=== PATIENT | female | born 1965 | race African-American/Black ===

== ENCOUNTER 2017-06-18 22:59 | Emergency (ER) | payer BC ==
[2017-06-18 23:05] VITALS: BMI 24.4
--- NOTE | 2017-06-18 23:20 | PDOC ---
History of Present Illness - General History Source: Patient - History of Present Illness Initial Comments: 06/19/17 01:47 Patient is a 51 y.o. female who presents with parapsinal thoracic back pain after sleeping on the couch overnight. Patient denies any trauma or limited ROM. Patient further denies any systemic symptoms of infection including fever , chills. <Belem Winters - Last Filed: 06/19/17 01:55> <Shameka Ayala - Last Filed: 06/19/17 06:05> - General Chief Complaint: Back Pain Stated Complaint: BACK PAIN Time Seen by Provider: 06/18/17 23:19 Past History - Past Medical History Anemia: Yes (MICROCYTIC) Asthma: Yes (MICROCYSTIC) Cancer: No Cardiac Disorders: No CVA: No COPD: No CHF: No Dementia: No Diabetes: Yes (BORDERLINE-NO MED) GI Disorders: Yes (NSAID GASTRITIS, MULTIPLE COLON ADENOMAS, LACTOSE INTOLERANCE ) Disorders: Yes (ENDOMETRIOSIS) HTN: Yes Hypercholesterolemia: Yes Liver Disease: No Seizures: No Thyroid Disease: No - Surgical History Abdominal Surgery: No Appendectomy: No Cardiac Surgery: No Cholecystectomy: No Lung Surgery: No Neurologic Surgery: No Orthopedic Surgery: No - Suicide/Smoking/Psychosocial Hx Smoking History: Current every day smoker Have you smoked in the past 12 months: Yes Number of Cigarettes Smoked Daily: 20 Information on smoking cessation initiated: No 'Breaking Loose' booklet given: 02/22/14 Hx Alcohol Use: No Drug/Substance Use Hx: No Substance Use Type: None Hx Substance Use Treatment: No <Belem Winters - Last Filed: 06/19/17 01:55> <Shaemka Ayala - Last Filed: 06/19/17 06:05> - Past Medical History Allergies/Adverse Reactions: Allergies Allergy/AdvReac Type Severity Reaction Status Date / Time cat dander Allergy Severe Difficulty Verified 06/18/17 23:37 Breathing dog dander Allergy Severe Difficulty Verified 06/18/17 23:37 Breathing CAT AND DOGS Allergy Severe Difficulty Uncoded 05/13/16 14:16 Breathing LACTOSE INTOLERANCE AdvReac Intermediate Uncoded 05/13/16 14:17 Home Medications: Ambulatory Orders Ibuprofen [Motrin -] 800 mg PO ASDIR PRN 12/26/15 Mag Carb/Al Hydrox/Alginic AC [Gaviscon Liquid] 30 ml PO Q4H #0 oral.susp Zolpidem Tartrate [Ambien] 5 mg PO HS 12/26/15 Amlodipine Besylate 5 mg PO DAILY 05/13/16 Cholecalciferol (Vitamin D3) [Vitamin D3] 1,000 unit PO DAILY 05/13/16 Multivitamin with Minerals [Icaps Plus] 1 each PO DAILY 05/13/16 Mv W-Ca/Iron/FA/Lutein/Hrb#179 [Eloy Multi For Women Tab] 1 each PO DAILY Nebivolol HCl [Bystolic] 15 mg PO DAILY 05/13/16 Ranitidine [Zantac -] 150 mg PO BID PRN 05/13/16 Oxycodone HCl/Acetaminophen [Percocet 10-325 mg Tablet] 1 each PO TID PRN #15 tablet MDD 3 06/19/17 Review of Systems - Review of Systems Constitutional: No: Chills, Fever Cardiac (ROS): No: Chest Pain ABD/GI: No: Constipated, Diarrhea, Nausea, Vomiting Musculoskeletal: Yes: Back Pain All Other Systems: Reviewed and Negative <Belem Winters - Last Filed: 06/19/17 01:55> *Physical Exam - Vital Signs Last Vital Signs Temp Pulse Resp BP Pulse Ox 98.3 F 67 18 125/68 98 06/18/17 23:02 06/18/17 23:02 06/18/17 23:02 06/18/17 23:02 06/18/17 23:02 - Physical Exam General Appearance: Yes: Nourished, Appropriately Dressed Respiratory/Chest: positive: Lungs Clear Cardiovascular: positive: S1, S2 Musculoskeletal: positive: Normal Inspection. 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, Fully Oriented, Alert, Motor Strength 5/5 <Belem Winters - Last Filed: 06/19/17 01:55> - Vital Signs Last Vital Signs Temp Pulse Resp BP Pulse Ox 97.6 F 56 L 17 135/59 99 06/19/17 01:16 06/19/17 01:16 06/19/17 01:16 06/19/17 01:16 06/19/17 01:16 <Shameka Ayala - Last Filed: 06/19/17 06:05> ED Treatment Course - Medications Given in the ED: ED Medications Discontinued Medications Generic Name Dose Route Start Last Admin Trade Name Bebeto PRN Reason Stop Dose Admin Ketorolac Tromethamine 30 mg 06/18/17 23:32 06/19/17 00:09 Toradol Injection - IM 06/18/17 23:33 30 mg ONCE ONE Administration Methocarbamol 500 mg 06/18/17 23:32 06/19/17 00:08 Robaxin - PO 06/18/17 23:33 500 mg ONCE ONE Administration Oxycodone/Acetaminophen 1 combo 06/18/17 23:38 06/19/17 00:09 Percocet 5/325 - PO 06/18/17 23:39 1 combo ONCE ONE Administration <Shameka Ayala - Last Filed: 06/19/17 06:05> Medical Decision Making - Medical Decision Making 06/19/17 01:49 Patient is a 51 y.o. female who presents with back pain. On PE, patient has no C-spine or vertebral tenderness and displays full range of motion and normal strength. Patient is neurologically intact and displays normal gait. 06/19/17 01:54 Patient's pain resolved with Toradol and Robaxin. Patient discharged with outpatient prescription for Percocet and instruction to follow up with PCP. <Belem Winters - Last Filed: 06/19/17 01:55> - Medical Decision Making 06/19/17 06:04 Pt seen and discussed with resident. I agree with her exam. Pt comes with new onset muscle pain. Pt is feeling better with meds in the ER. Pt will go home with analgesia and muscle relaxants. Pt has a diagnosis of muscle spasm. <Shameka Ayala - Last Filed: 06/19/17 06:05> *DC/Admit/Observation/Transfer <Belem Winters - Last Filed: 06/19/17 01:55> <Shameka Ayala - Last Filed: 06/19/17 06:05> Diagnosis at time of Disposition: Back pain - Discharge Dispostion Disposition: HOME Condition at time of disposition: Good - Prescriptions Prescriptions: Oxycodone HCl/Acetaminophen [Percocet 10-325 mg Tablet] 1 each PO TID PRN #15 tablet MDD 3 PRN Reason: Back Pain - Referrals Referrals: Fbaiano Arambula MD [Primary Care Provider] - - Patient Instructions Printed Discharge Instructions: DI for Thoracic Back Pain Additional Instructions: Please follow up with your Primary Care Provider in the next 5 days. Please return to the Emergency Department for any worsening or concerning symptoms.
[2017-06-18] MEDS ORDERED: KETOROLAC TROMETHAMINE 30 MG/1 ML VIAL IM ONE (23:32)
[2017-06-18] MEDS ORDERED: METHOCARBAMOL 500 MG TABLET PO ONE (23:32)
[2017-06-19] MEDS ORDERED: METHOCARBAMOL 500 MG TABLET ONE (00:01)
[2017-06-19] MEDS ORDERED: KETOROLAC TROMETHAMINE 30 MG/1 ML VIAL ONE (00:01)
[2017-06-19 01:17] VITALS: BP 135/59; PULSE 56; TEMP 97.6
== END 2017-06-19 01:17 | disposition home or self-care (01) ==
LOC: JER 22:59
PROC: 3E0233Z Introduction of Anti-inflammatory into Muscle, Percutaneous Approach (ICD-10-PCS; principal; 2017-06-18)
DX: M54.89 Other dorsalgia (principal); X50.1XXA Overexertion from prolonged static or awkward postures, initial encounter; Y93.89 Activity, other specified; Y92.038 Other place in apartment as the place of occurrence of the external cause; I10 Essential (primary) hypertension; E11.9 Type 2 diabetes mellitus without complications; E78.00 Pure hypercholesterolemia, unspecified; D50.9 Iron deficiency anemia, unspecified; F17.210 Nicotine dependence, cigarettes, uncomplicated; Z87.19 Personal history of other diseases of the digestive system
CPT/HCPCS: 99281-25

== ENCOUNTER 2018-03-27 07:08 | Day surgery (SDC) | payer BC ==
[2018-03-27 07:46] VITALS: BMI 24.7
[2018-03-27] MEDS ORDERED: SUCCINYLCHOLINE CHLORIDE 200 MG/10 ML VIAL ONE (07:55)
[2018-03-27] MEDS ORDERED: PROPOFOL 20 ML ONE ×5 (07:55)
[2018-03-27] MEDS ORDERED: LIDOCAINE HCL/PF 2% SDV 5ML VIAL ONE (07:56)
[2018-03-27 09:04] VITALS: TEMP 98.5
[2018-03-27 09:26] VITALS: PULSE 58
[2018-03-27 13:00] VITALS: BP 147/74
--- NOTE | 2018-03-28 16:33 | PATH ---
Surgical Pathology Report Patient Name: PILAR DUNCAN [facility]. Rec. #: [id number] /Age/Gender: 1965 (Age: 52) / F Account: [id number] Location: U-ENDOSCOPY Taken: 03/27/2018 Received: 03/27/2018 Reported: 03/28/2018 Physicians: Svetlana Marcial M.D. Specimen(s) Received A: BX ANTRAL POLYP B: BX ANTRUM C: BX GASTRIC BODY D: BX GE JUNCTION E: RECTAL POLYP F: POLYP SIGMOID G: BX HEPATIC FLEXURE POLYP H: BX TRANSVERSE COLON POLYP I: BX DESCENDING COLON POLYP Clinical History Dyspepsia, altered bowel habits, adenoma surveillance Postoperative diagnosis: Gastritis, hiatal hernia, antral polyp, colon polyps, diverticulosis Final Diagnosis A. STOMACH, ANTRAL POLYP, POLYPECTOMY: POLYPOID GASTRIC ANTRAL MUCOSA WITH MINIMAL CHRONIC INFLAMMATION AND FOCAL INTESTINAL METAPLASIA. IMMUNOHISTOCHEMICAL STAIN FOR H. PYLORI IS NEGATIVE. B. STOMACH, ANTRUM, BIOPSY: GASTRIC ANTRAL MUCOSA WITH MILD CHRONIC GASTRITIS. IMMUNOHISTOCHEMICAL STAIN FOR H. PYLORI IS NEGATIVE. C. STOMACH, BODY, BIOPSY: GASTRIC BODY MUCOSA WITH MILD CHRONIC GASTRITIS. IMMUNOHISTOCHEMICAL STAIN FOR H. PYLORI IS NEGATIVE. D. GE JUNCTION, BIOPSY: SQUAMOUS MUCOSA WITH VASCULAR CONGESTION AND MODERATE BASAL CELL HYPERPLASIA CONSISTENT WITH REFLUX TYPE CHANGES. NO COLUMNAR MUCOSA, INTESTINAL METAPLASIA OR DYSPLASIA IDENTIFIED. E. RECTUM, POLYP, POLYPECTOMY: HYPERPLASTIC POLYP. F. SIGMOID COLON, POLYP, POLYPECTOMY: HYPERPLASTIC POLYP. G. COLON, HEPATIC FLEXURE, POLYP, POLYPECTOMY: POLYPOID COLONIC MUCOSA WITH SMALL LYMPHOID AGGREGATE. POLYPOID COLONIC MUCOSA WITHOUT SIGNIFICANT PATHOLOGIC FINDINGS. H. TRANSVERSE COLON, POLYPS, POLYPECTOMY: POLYPOID COLONIC MUCOSA WITH PROMINENT LYMPHOID AGGREGATE. I. DESCENDING COLON, POLYPS, POLYPECTOMY: POLYPOID COLONIC MUCOSA WITH PROMINENT LYMPHOID AGGREGATE. Electronically Signed Sally Frank M.D. Gross Description A. Received in formalin, labeled "biopsy antral polyp" is a hermosillo, irregular portion of soft tissue measuring 0.4 cm. in greatest dimension. The specimen is submitted in toto in one cassette. B. Received in formalin, labeled "biopsy antrum" are 3 hermosillo, irregular portions of soft tissue ranging from 0.2-0.4 cm. in greatest dimension. The specimens are submitted in toto in one cassette. C. Received in formalin, labeled "biopsy gastric body" are 4 hermosillo, irregular portions of soft tissue ranging from 0.3-0.5 cm. in greatest dimension. The specimens are submitted in toto in one cassette. D. Received in formalin, labeled "biopsy GE junction" are 2 hermosillo, irregular portions of soft tissue measuring 0.3 and 0.5 cm. in greatest dimension. The specimens are submitted in toto in one cassette. E. Received in formalin, labeled "biopsy rectal polyp" are 2 hermosillo, irregular portions of soft tissue measuring 0.3 and 0.4 cm. in greatest dimension. The specimens are submitted in toto in one cassette. F. Received in formalin, labeled "biopsy sigmoid polyp" are 4 hermosillo, irregular portions of soft tissue ranging from 0.2-0.3 cm. in greatest dimension. The specimens are submitted in toto in one cassette. G. Received in formalin, labeled "biopsy hepatic flexure polyps" are 4 hermosillo, irregular portions of soft tissue ranging from 0.1-0.3 cm. in greatest dimension. The specimens are submitted in toto in one cassette. H. Received in formalin, labeled "biopsy polyps transverse colon" are 4 hermosillo, irregular portions of soft tissue ranging from 0.1-0.4 cm. in greatest dimension. The specimens are submitted in toto in one cassette. I. Received in formalin, labeled "biopsy descending colon polyps" are 4 hermosillo, irregular portions of soft tissue ranging from 0.1-0.4 cm. in greatest dimension. The specimens are submitted in toto in one cassette. 03/27/2018 saudi03/27/2018
== END 2018-03-27 10:25 | disposition home or self-care (01) ==
LOC: JASU-ENDO 07:08
PROVIDERS: ATTEND Internal Medicine Gastroenterology
PROC: 0DBL8ZX Excision of Transverse Colon, Via Natural or Artificial Opening Endoscopic, Diagnostic (ICD-10-PCS; 2018-03-27)
PROC: 0DBN8ZX Excision of Sigmoid Colon, Via Natural or Artificial Opening Endoscopic, Diagnostic (ICD-10-PCS; 2018-03-27)
PROC: 0DBP8ZX Excision of Rectum, Via Natural or Artificial Opening Endoscopic, Diagnostic (ICD-10-PCS; 2018-03-27)
PROC: 0DB48ZX Excision of Esophagogastric Junction, Via Natural or Artificial Opening Endoscopic, Diagnostic (ICD-10-PCS; 2018-03-27)
PROC: 0DB68ZX Excision of Stomach, Via Natural or Artificial Opening Endoscopic, Diagnostic (ICD-10-PCS; 2018-03-27)
PROC: 0DB38ZX Excision of Lower Esophagus, Via Natural or Artificial Opening Endoscopic, Diagnostic (ICD-10-PCS; 2018-03-27)
PROC: 0DBM8ZX Excision of Descending Colon, Via Natural or Artificial Opening Endoscopic, Diagnostic (ICD-10-PCS; principal; 2018-03-27 08:00)
DX: Z86.010 Personal history of colon polyps (principal); D12.6 Benign neoplasm of colon, unspecified; D12.4 Benign neoplasm of descending colon; K63.5 Polyp of colon; K57.30 Diverticulosis of large intestine without perforation or abscess without bleeding; K64.8 Other hemorrhoids; K31.7 Polyp of stomach and duodenum; K44.9 Diaphragmatic hernia without obstruction or gangrene; K29.50 Unspecified chronic gastritis without bleeding; K21.9 Gastro-esophageal reflux disease without esophagitis
CPT/HCPCS: 88305-TC; 88342-TC

== ENCOUNTER 2018-12-11 12:15 | Emergency (ER) | payer BC ==
[2018-12-11 12:26] VITALS: BP 121/70; PULSE 96; TEMP 98; BMI 26.6
--- NOTE | 2018-12-11 13:05 | PDOC ---
History of Present Illness - General Chief Complaint: Pain Stated Complaint: ABDOMINAL PAIN Time Seen by Provider: 12/11/18 13:04 History Source: Patient Exam Limitations: No Limitations - History of Present Illness Initial Comments: Pt is a 53 yo F, with PMH of borderline DM (no medication), BP (controlled on amlodipine), GERD, diverticulitis, and uterine/GI polyps, who is presenting with complaints of isabel-umbilical discomfort x2 days. Pt states the discomfort feels like "a pressure against her waist-band," has been non-migratory since it started, and is constant. The pain does not radiate to her groin or back. There are no exacerbating or alleviating factors. The pt has been tolerating PO food and fluid intake, but endorses some decreased appetite for food. Pt has had regular BMs, with no nausea or vomiting. Pt also endorses recent "hot flashes" and crampy abdominal pain over the past few months, with negative transvaginal US about 3 weeks ago. Last EGD done March 2018 showed extensive polyps, diverticulitis, and GERD, with no ulcers. PT has also had uterine polyps removed with D/C about 2 years ago. Pt denies any fevers/chills, headache, vision changes, syncope, chest pain, palpitations, SOB, nausea/vomiting, vaginal discharge or bleeding, urinary symptoms, diarrhea/constipation, or leg swelling. Social: Pt smokes about 1/2 pack per day. Denies any alcohol or drug use. Pt denies any recent travel or sick contacts. Surgical: uterine D&I and polypectomy Family: no relevant history. 12/11/18 14:38 Past History - Travel Traveled outside of the country in the last 30 days: No Close contact w/someone who was outside of country & ill: No - Past Medical History Allergies/Adverse Reactions: Allergies Allergy/AdvReac Type Severity Reaction Status Date / Time cat dander Allergy Severe Difficulty Verified 06/18/17 23:37 Breathing dog dander Allergy Severe Difficulty Verified 06/18/17 23:37 Breathing CAT AND DOGS Allergy Severe Difficulty Uncoded 05/13/16 14:16 Breathing LACTOSE INTOLERANCE AdvReac Intermediate Uncoded 05/13/16 14:17 Home Medications: Ambulatory Orders Zolpidem Tartrate [Ambien] 5 mg PO HS 12/26/15 Amlodipine Besylate 10 mg PO DAILY 05/13/16 Nebivolol HCl [Bystolic] 5 mg PO DAILY 05/13/16 Melatonin 1 mg PO HS 03/27/18 Pitavastatin Calcium [Livalo] 2 mg PO HS 03/27/18 Anemia: Yes (MICROCYTIC) Asthma: Yes Cancer: No Cardiac Disorders: No CVA: No COPD: No CHF: No Dementia: No Diabetes: Yes (BORDERLINE-NO MED) GI Disorders: Yes (NSAID GASTRITIS, MULTIPLE COLON ADENOMAS, LACTOSE INTOLERANCE ,diverticulosi) Disorders: Yes (ENDOMETRIOSIS) HTN: Yes Hypercholesterolemia: Yes Liver Disease: No Seizures: No Thyroid Disease: No Other medical history: polyps and diverticulosis. - Surgical History Abdominal Surgery: No Appendectomy: No Cardiac Surgery: No Cholecystectomy: No Lung Surgery: No Neurologic Surgery: No Orthopedic Surgery: No - Suicide/Smoking/Psychosocial Hx Smoking History: Never smoked Have you smoked in the past 12 months: Yes Number of Cigarettes Smoked Daily: 10 Information on smoking cessation initiated: No 'Breaking Loose' booklet given: 02/22/14 Hx Alcohol Use: No Drug/Substance Use Hx: No Substance Use Type: None Hx Substance Use Treatment: No Review of Systems - Review of Systems Able to Perform ROS?: Yes Is the patient limited [place] proficient: No Constitutional: Yes: Weight Stable. No: Chills, Diaphoresis, Fever, Loss of Appetite, Malaise, Weakness HEENTM: No: Blurred Vision, Double Vision, Nose Congestion, Throat Pain, Throat Swelling, Difficulty Swallowing, Mouth Swelling Respiratory: No: Cough, Orthopnea, Shortness of Breath Cardiac (ROS): No: Chest Pain, Edema, Irregular Heart Rate, Lightheadedness, Palpitations, Syncope, Chest Tightness ABD/GI: Yes: See HPI, Poor Appetite, Poor Fluid Intake, Abdominal cramping. No : Abdominal Distended, Abd. Pain w/ defecation, Blood Streaked Bowels, Constipated, Diarrhea, Difficulty Swallowing, Nausea, Rectal Bleeding, Vomiting , Indigestion : No: Burning, Dysuria, Discharge, Frequency, Flank Pain, Hematuria, Incontinence, Pain, Urgency Musculoskeletal: No: Back Pain, Joint Pain, Muscle Pain, Muscle Weakness Integumentary: No: Rash Neurological: No: Headache, Numbness, Weakness, Unsteady Gait, Dizziness Psychiatric: Yes: Change in Appetite. No: Stressors, Sleep Pattern Change Endocrine: Yes: Flushing (increased hot flashes). No: Intolerance to Cold, Intolerance to Heat, Increased Urine, Change in Weight Hematologic/Lymphatic: No: Anemia, Blood Clots, Easy Bleeding, Easy Bruising All Other Systems: Reviewed and Negative *Physical Exam - Vital Signs Last Vital Signs Temp Pulse Resp BP Pulse Ox 98 F 96 H 16 121/70 98 12/11/18 12:22 12/11/18 12:22 12/11/18 12:22 12/11/18 12:22 12/11/18 12:22 - Physical Exam Comments: BP 121/70, HR 96, pt afebrile. Pt in NAD, normal body habitus. PE showed pt alert and oriented. Pt ambulatory and well-appearing. 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 Head normocephalic, atraumatic. Eyes PERRLA, EOMI. Oropharynx without erythema or exudates, no LAD b/l. No nasal congestion, hearing intact. Clear heart sounds, S1/S2, no JVD, b/l pedal edema, or heart murmur. Clear lung sounds, no respiratory distress, wheezes, crackles, or accessory muscle use. Mild periumbilical tenderness to palpation. No CVA tenderness to palpation, no rebound, no guarding. Abdomen soft, non-distended, and with normoactive bowel sounds. Skin without jaundice or rash. 12/11/18 14:00 ED Treatment Course - LABORATORY CBC & Chemistry Diagram: 12/11/18 13:50 12/11/18 13:50 Medical Decision Making - Medical Decision Making Pt was seen at bedside, also will be seen by attending Dr. Lovell. Pt presenting with complaints of isabel-umbilical discomfort x2 days. Pt states the discomfort feels like "a pressure against her waist-band," has been non- migratory since it started, and is constant. The pain does not radiate to her groin or back. There are no exacerbating or alleviating factors. The pt has been tolerating PO food and fluid intake, but endorses some decreased appetite for food. Pt has had regular BMs, with no nausea or vomiting. Pt also endorses recent "hot flashes" and crampy abdominal pain over the past few months, with negative transvaginal US about 3 weeks ago. Last EGD done March 2018 showed extensive polyps, diverticulitis, and GERD, with no ulcers. PT has also had uterine polyps removed with D/C about 2 years ago. Pt denies any fevers/chills, headache, vision changes, syncope, chest pain, palpitations, SOB, nausea/ vomiting, vaginal discharge or bleeding, urinary symptoms, diarrhea/constipation , or leg swelling. Considering UTI vs diverticulitis vs appendicitis vs recurrent polyps vs mesenteric pathology. Pain is constant and pt has minimal risk factors for mesenteric ischemia, given well-controlled BP. Ordered work-up including CBC, CMP, UA, urine culture, lipase, CT abd/pelvis with IV contrast. Provided 650 mg PO tylenol and 1 L IV NS for improvement of pain and tachycardia , likely 2/2 to decreased intake or pain. Will continue to reassess pt and monitor for symptomatic improvement. 12/11/18 13:57 12/11/18 14:29 CBC, CMP, lipase WNL Pt taken for CT scan. Pt refused PO tylenol, saying "I don't have that much pain," per nursing staff. 12/11/18 15:38 Impression: Diverticulosis coli in the distal descending and proximal sigmoid colon with acute diverticulitis at the junction of the distal descending and proximal sigmoid colon without evidence of extravasation of air or abscess formation. Large right renal simple cyst measuring 5 cm. Left adrenal nodule measuring 11 mm likely representing an adrenal adenoma. Slightly hyperdense right adrenal nodule measuring 2.5 x 1.8 cm for which correlation with MRI is needed Spoke with Dr. Arambula who is also agreeable to outpatient antibiotics ( flagyl and bactrim DS), with PCP and GI follow-up. Strict return precautions provided with pt understanding. 12/11/18 18:47 *DC/Admit/Observation/Transfer Diagnosis at time of Disposition: Periumbilical pain - Discharge Dispostion Disposition: HOME Condition at time of disposition: Good Decision to Admit order: No - Referrals Referrals: Fabiano Arambula MD [Primary Care Provider] - Svetlana Marcial MD [Staff Physician] - - Patient Instructions Printed Discharge Instructions: DI for Diverticulitis Additional Instructions: You were seen in the ER today for abdominal pain. The results of your labs and imaging today showed diverticulitis. Please follow-up with your primary care doctor and GI within 1-2 days to discuss your visit and make sure your symptoms have improved. Please return to the ER if you have any worsening pain, development of fevers or chills, loss of consciousness, inability to tolerate food or fluids, or any other concerns. - Post Discharge Activity
[2018-12-11] MEDS ORDERED: SODIUM CHLORIDE 1,000 ML IV STA (13:49)
[2018-12-11] MEDS ORDERED: ACETAMINOPHEN 325 MG TABLET (FP) PO ONE (13:49)
[2018-12-11 14:06] LABS: URINE APPEARANCE CLEAR; URINE BILIRUBIN NEGATIVE (NEGATIVE); URINE COLOR YELLOW; URINE GLUCOSE (UA) NEGATIVE (NEGATIVE); URINE KETONE NEGATIVE (NEGATIVE); URINE LEUK ESTERASE NEGATIVE (NEGATIVE); URINE NITRITE NEGATIVE (NEGATIVE); URINE PROTEIN NEGATIVE (NEGATIVE)
[2018-12-11] MEDS ORDERED: ACETAMINOPHEN 325 MG TABLET (FP) ONE (14:35)
[2018-12-11 14:41] LABS: BASO % 0.8 % (0-2.0); EOS % 1.3 % (0-4.5); HEMATOCRIT 43.3 % (32.4-45.2); HEMOGLOBIN 14.3 GM/dL (10.7-15.3); LYMPH % 38.2 % (8-40); MCH 28.6 pg (25.7-33.7); MEAN CELL VOLUME 86.4 fl (80-96); MEAN PLT VOLUME 8.1 fl (7.5-11.1); MONO % 7.4 % (3.8-10.2); NEUT % 52.3 % (42.8-82.8); PLATELET COUNT 303 K/MM3 (134-434); RBC 5.01 M/mm3 (3.60-5.2); RDW 13.8 % (11.6-15.6); WHITE BLOOD COUNT 8.2 K/mm3 (4.0-10.0)
[2018-12-11 15:12] LABS: ALBUMIN 4.1 g/dl (3.4-5.0); ALK PHOS 73 U/L (45-117); ANION GAP 7 MMOL/L (8-16); BILIRUBIN,TOTAL 0.5 mg/dL (0.2-1); BLOOD UREA NITROGEN 12 mg/dL (7-18); CALCIUM 9.1 mg/dL (8.5-10.1); CHLORIDE 108 mmol/L (98-107); CO2 25 mmol/L (21-32); CREATININE 0.8 mg/dL (0.55-1.3); GLUCOSE,RANDOM 94 mg/dL (74-106); LIPASE 183 U/L (73-393); POTASSIUM 4.3 mmol/L (3.5-5.1); SGOT/AST 21 U/L (15-37); SGPT/ALT 24 U/L (13-61); SODIUM 141 mmol/L (136-145); TOT PROT 7.6 g/dl (6.4-8.2)
--- NOTE | 2018-12-11 16:04 | PDOC ---
Attending Attestation - Resident Resident Name: Gretchen Simmons - ED Attending Attestation I have performed the following: I have examined & evaluated the patient, The case was reviewed & discussed with the resident, I agree w/resident's findings & plan, Exceptions are as noted - HPI HPI: 12/11/18 15:59 The patient is a 53 year old female, with a significant PMH of borderline DM, HTN, extensive GI hx - diverticitis, uterine polyp, who was sent into the emergency department by Dr. Arambula, for evaluation of periumbilical pain that began on Tuesday. She states that it is a constant discomfort and that it feels like her waistband is too tight. She notes decreased PO. Patient endorses "menopause symptoms" - hot flashes, crampy abdominal feeling for the past month. Patient denies vaginal symptoms. A prescription from Dr. Arambula recommends CTAP for RLQ pain, but pt denies RLQ pain. The patient denies chest pain, shortness of breath, headache and dizziness. Denies fever, chills, nausea, vomit, diarrhea and constipation. Denies dysuria, frequency, urgency and hematuria. Allergies: NKA Social history: None reported PCP: Dr. Arambula - Physicial Exam PE: 12/11/18 16:04 agree with resident exam - Medical Decision Making 12/11/18 16:06 53yo F presents to the ED for evaluation of isabel-umbilical pain and for CTAP from Dr. Arambula's office. Vitals wnl. Pt is well appearing, has mild ttp in periumbilical area. DDx includes appendicitis vs diverticulitis vs fibroids vs colitis vs pancreatitis. Plan -labs -UA -CTAP -symptom control -dispo 12/11/18 18:43 Labs/UA wnl CTAP with acute divertiulitis w/o abscess, perf Pt well appearing, non toxic, tolerating PO Plan to treat as an outpt Dr. Arambula has been paged to discuss 12/11/18 19:[address] Arambula by Dr. Simmons Agrees with outpt mgmt with abx CTAP also reveals adrenal nodule that requires correlation with MRI Informed pt of this finding and that it must be w/u as an outpt to make sure it is not cancerous Pt expresses understanding, will f/u with Dr. Arambula for MRI Pt well appearing, clinically stable for DC home.
== END 2018-12-11 19:01 | disposition home or self-care (01) ==
LOC: JER 12:15
PROC: 3E0337Z Introduction of Electrolytic and Water Balance Substance into Peripheral Vein, Percutaneous Approach (ICD-10-PCS; principal; 2018-12-11)
DX: K57.92 Diverticulitis of intestine, part unspecified, without perforation or abscess without bleeding (principal); I10 Essential (primary) hypertension; E11.9 Type 2 diabetes mellitus without complications; E78.00 Pure hypercholesterolemia, unspecified; Z86.2 Personal history of diseases of the blood and blood-forming organs and certain disorders involving the immune mechanism; Z87.19 Personal history of other diseases of the digestive system
CPT/HCPCS: 36415; 74177-TC; 80053; 81003; 83690; 85025; 87086; 99283-25; J7030

== ENCOUNTER → 2020-04-21 | Day surgery (SDC) | payer BC ==
[2020-04-17 13:43] VITALS: BMI 26.7
== END | disposition home or self-care (01) ==
LOC: JASU-ENDO 04:52
PROVIDERS: ATTEND Internal Medicine Gastroenterology
PROC: 0DJD8ZZ Inspection of Lower Intestinal Tract, Via Natural or Artificial Opening Endoscopic (ICD-10-PCS; principal; 2020-04-21)
DX: K58.9 Irritable bowel syndrome, unspecified (principal); Z53.8 Procedure and treatment not carried out for other reasons

== ENCOUNTER 2020-05-23 05:05 | Day surgery (SDC) | payer BC ==
[2020-05-22 13:51] VITALS: BMI 26.7
--- OUTSIDE RECORDS SUMMARY | 2020-05-23 05:09 | XMS ---
:1965 [facility] Care Team Providers Name Role Phone Fransico Valdez MD Unavailable Unavailable Fransico Valdez MD Unavailable Unavailable Fransico Valdez MD Unavailable Unavailable Fransico Valdez MD Unavailable Unavailable Fransico Valdez MD Unavailable Unavailable Fransico Valdez MD Unavailable Unavailable Fransico Valdez MD Unavailable Unavailable Fransico Valdez MD Unavailable Unavailable THONY LAURENT Unavailable Unavailable Re-disclosure Warning The records that you are about to access may contain information from federally- assisted alcohol or drug abuse programs. If such information is present, then the following federally mandated warning applies: This information has been disclosed to you from records protected by federal confidentiality rules (42 CFR part 2). The federal rules prohibit you from making any further disclosure of this information unless further disclosure is expressly permitted by the written consent of the person to whom it pertains or as otherwise permitted by 42 CFR part 2. A general authorization for the release of medical or other information is NOT sufficient for this purpose. The Federal rules restrict any use of the information to criminally investigate or prosecute any alcohol or drug abuse patient.The records that you are about to access may contain highly sensitive health information, the redisclosure of which is protected by Article 27-F of the [place] State Public Health law. If you continue you may haveaccess to information: Regarding HIV / AIDS; Provided by facilities licensed or operated by the [facility] Office of Mental Health; or Provided by the [facility] Office for People With Developmental Disabilities. If such information is present, then the following [facility] mandated warning applies: This information has been disclosed to you from confidential records which are protected by state law. State law prohibits you from making any further disclosure of this information without the specific written consent of the person to whom it pertains, or as otherwise permitted by law. Any unauthorized further disclosure in violation of state law may result in a fine or custodial sentence or both. A general authorization for the release of medical or other information is NOT sufficient authorization for further disclosure. Allergies and Adverse Reactions Type Description Substance Reaction Status Data Source(s ) aspirin aspirin aspirin Unknown Active eCW1 ([facility]) Propensity to aspirin Propensity to Unknown Active eCW1 ( int adverse reactions adverse reactions [facility]) No Information No Information No Information eC W1 ([facility]) Encounters Encounter Providers Location Date Indications Data Source(s ) Outpatient Attender: THONY Aviles 04/15/2020 [facility] MEHRANAdmitt 09:05:00 [facility] er: THONY ZEPEDA EDT MEHRANReferr er: THONY LAURENT Outpatient [address] 04/14/2020 eCW1 ([facility] 12:00:00 Mera Medic al AM EDT Practice PC) [facility] [address] 01/03/2020 eCW1 ([facility] 12:00:00 Mera M edical AM EDT Practice PC) [address] 01/03/2020 eCW1 (S aint Office [facility] 12:00:00 Mera Medi fabiola AM EDT Practice PC) [address] 09/03/2019 eCW1 (S aint Office [facility] 12:00:00 Mera Medi fabiola AM EST Practice PC) Outpatient Attender: Fransico Aviles 01/30/2019 [facility] 08:50:00 [place] MDAdmitter: AM EDT Fransico Valdez MDReferrer: Fransico Valdez MD [facility] 01/30/2019 [facility]EXTGEN ( int Center 08:50:00 Mera Medica l AM EDT - Center) 01/30/2019 08:50:00 AM EDT Attender: Fransico 01/30/2019 [facility] Valdez MD 12:00:00 Medical Center AM EDT Outpatient Attender: Fransico Aviles 01/23/2019 [facility] 07:50:00 Medical Center MDAdmitter: AM EDT Fransico Valdez MDReferrer: Fransico Valdez MD [facility] 01/23/2019 [facility] 07:50:00 Mera Medica l AM EDT - Center) 01/23/2019 07:50:00 AM EDT [address] 01/12/2019 eCW1 (S aint Office [facility] 12:00:00 Mera Medi fabiola AM EDT Practice PC) 09/19/2018 [facility] ([facility] 08:14:00 Mera Medica l AM EST - Center) 09/19/2018 08:14:00 AM EST [address] 09/19/2018 [facility] 12:00:00 [facility] AM EST Practice PC ) [address] 10/25/2017 eCW[facility] AM EST Practice PC ) [address] 09/27/2017 eCW1 [facility] AM EST Practice PC ) [address] 05/17/2017 eCW1 [facility] 12:00:00 [facility] AM EDT Practice PC ) [address] 10/21/2016 eCW1 (S aint Office [facility] 12:00:00 Mera Medi fabiola AM EST Practice PC) [address] 09/16/2016 eCW1 (S aint Office [facility] 12:00:00 Mera Medi fabiola AM EST Practice PC) [address] 03/12/2015 [facility] EDT Practice ) [address] 01/15/2015 eCW1 ([facility]00 [facility] Immunizations Vaccine Date Status Description Data Source(s) IIV3. This vaccine code is 09/19/2018 completed e CW1 ([facility] one of two which replace 10:06:00 AM [facility]) CVX 15, influenza, split virus. IIV3. This vaccine code is 09/27/2017 completed e CW1 ([facility] one of two which replace 11:24:00 AM [facility]) CVX 15, influenza, split virus. IIV3. This vaccine code is 01/15/2015 completed e CW1 ([facility] one of two which replace 10:10:00 AM [facility]) CVX 15, influenza, split virus. No Known Immunizations completed eCW1 ([facility]) No Known Immunizations completed eCW1 ([facility]) Medications Medication Brand Start Product Dose Route Administrative Pharmacy [facility] Indications Reaction Description Data Name Date Form Instructions Instructions Source(s) Biotin UNK suspend 1 capsule eCW1 10,000 ed ([facility]) Folic Acid Folic 1.0 active Folic Acid 1 eCW1 1 MG Oral Acid 1 {tabl MG ([facility] Tablet MG et} [facility]) Multivitami UNK active one tablet eCW1 n ([facility]) Ascorbic Vitami suspend 1 tablet eC W1 Acid 500 MG n C ed ([facility] Oral Tablet 500 MG [facility] Vitamin C Medical 500 MG [facility]) Amlodipine Amlodi active 1 tablet e CW1 5 MG Oral pine ([facility] Besyla [facility] Amlodipine te 5 Medical Besylate 5 MG Practice [facility]) Folic Acid Folic active 1 tablet eC W1 1 MG Oral Acid 1 ([facility]) Multivitami UNK active Multivitami n eCW1 n ([facility]) B Complex - B active B Complex - eCW1 Comple ([facility]) B Complex - B active as directed eCW1 Comple ([facility] PC) Amlodipine Amlodi 1.0 active Amlodipine eCW1 5 MG Oral pine {tabl Besylate 5 (Sa int Tablet Besyla et} MG [facility] Amlodipine te 5 Medical Besylate 5 MG Practice MG PC) Vitamin B Vitami active as directed eCW1 12 100 MCG n B 12 ([address]) Ranitidine UNK 1.0 active Ranitidine e CW1 HCl 150 MG {tabl HCl 150 MG (S aint et_at [facility] _bedt Medical colt} Practice PC) Ranitidine Raniti suspend 1 tablet at eCW1 150 MG Oral dine ed bedtime (Kandi t Tablet HCl [facility] Ranitidine 150 MG Medical HCl 150 MG Practice PC) linaclotide Linzes 1.0 active Linzess 1 45 eCW1 0.145 MG s 145 {caps MCG ([facility] Oral MCG ule} [facility] Capsule Medical [Linzes] Practice Linzes 145 PC) MCG Ascorbic Vitami 1.0 active Vitamin C eC W1 Acid 500 MG n C {tabl 500 MG (Kandi t Oral Tablet 500 MG et} [facility] Vitamin C Medical 500 MG Practice PC) nebivolol 5 Bystol 1.0 active Bystolic 5 eCW1 MG Oral ic 5 {tabl MG (Saint Tablet MG et} [facility] [[facility]] [facility] Bystolic 5 Practice MG PC) Vitamin B Vitami active Vitamin B 1 2 eCW1 12 100 MCG n B 12 100 MCG (Elijah nt 100 [facility]) Unknown complet eCW1 Medications ed ([facility]) nebivolol 5 Bystol active 1 tablet eCW1 MG Oral ic 5 (Saint Tablet MG [facility] [[facility]] Medical Bystolic 5 Practice MG PC) Biotin UNK 1.0 active Biotin eCW1 10,000 {caps 10,000 ([facility]) linaclotide Linzes active 1 capsule eCW1 0.145 MG s 145 ([facility] Oral MCG [facility] Capsule Medical [Linzes] Practice Linzes 145 PC) MCG Insurance Providers Payer Policy type Policy ID Covered Covered democrat's Policy Pl an name / Coverage democrat ID relationship to Nunez Inf ormation type nunez BC OUT OF [id number] S [id number] STATE O BLUE O [id number] 02 [id number] CROSS BC PPO [id number] HU [id number] BC PPO [id number] BLUE [id number] self [id number] CROSS BLUE [id number] self [id number] CROSS Problems, Conditions, and Diagnoses Code Display Name Description Problem Type Effective Data Dates Source(s) E27.9 [id number] Adrenal mass Problem 01/12/2019 eCW1 ([facility] 12:00:00 AM Mera EDT Medical Practice ) E27.9 [id number] Adrenal mass Problem 01/12/2019 eCW1 ([facility] 12:00:00 AM Mera EDT Medical Practice ) I51.7 [id number] LVH (left Problem 10/21/2016 eCW1 ([facility] ventricular 12:00:00 AM Mera hypertrophy) [facility] Medical Practice ) I51.7 [id number] LVH (left Problem 10/21/2016 eCW1 ([facility] ventricular 12:00:00 AM Mera hypertrophy) [facility] Medical Practice ) I10 [id number] Essential (primary) Problem 01/27/2016 eCW1 ([facility] hypertension 12:00:00 AM Mera EDT Medical Practice ) E78.5 [id number] Other and Problem 01/27/2016 eCW1 ([facility] unspecified 12:00:00 AM Mera hyperlipidemia EDT Medical Practice ) I10 [id number] Essential (primary) Problem 01/27/2016 eCW1 ([facility] hypertension 12:00:00 AM Mera EDT Medical Practice ) E78.5 [id number] Other and Problem 01/27/2016 eCW1 ([facility] unspecified 12:00:00 AM Mera hyperlipidemia EDT Medical Practice ) 401.1 Benign essential Hypertension, Problem 01/15/2015 eCW1 ([facility] hypertension essential benign 12:00:00 AM Anil hs EDT Medical Practice PC) 272.4 Hyperlipidemia Other and Problem 01/15/2015 eCW1 (Kandi t unspecified 12:00:00 AM Mera hyperlipidemia EDT Medical Practice ) 401.1 Benign essential Hypertension, Problem 01/15/2015 eCW1 ([facility] hypertension essential benign 12:00:00 AM Anil hs EDT Medical Practice ) 272.4 Hyperlipidemia Other and Problem 01/15/2015 eCW1 (Kandi t unspecified 12:00:00 AM [facility] EDT Medical Practice PC) R00.2 Palpitations PALPITATIONS Diagnosis 04/15/2020 [facility] 09:05:00 AM Medical EDT Center R07.89 Other chest pain OTHER CHEST PAIN Diagnosis 01/30/2019 int [facility] 08:50:00 AM Medical EDT Center Surgeries/Procedures Procedure Description Date Indications Data Source(s) No Known procedures No Known procedures e CW1 ([facility]) No Known procedures No Known procedures e CW1 ([facility]) Results ID Date Data Source [id number] 05/19/2020 03:36:00 PM EDT [facility] Name Value Range Interpretation Description Data Sup porting Code Source(s) Document(s ) SARS [facility] coronavirus 2 RNA This lab was ordered by [facility] and reported by [facility]. ID Date Data Source [id number] 04/16/2020 02:16:00 PM EDT [facility] Name Value Range Interpretation Description Data Sup porting Code Source(s) Document(s ) SARS [facility] coronavirus 2 RNA This lab was ordered by [facility] and reported by [facility]. ID Date Data Source [id number] 02/15/2020 12:00:00 AM EDT [facility] Name Value Range Interpretation Code Description Data Jolynn rce(s) Supporting Document(s ) COV2 [facility] This lab was ordered by MEHRAN and reported by [place]. ID Date Data Source [id number] 12/03/2019 12:00:00 AM EDT [facility] Name Value Range Interpretation Code Description Data Jolynn rce(s) Supporting Document(s ) RESULT [facility] This lab was ordered by [facility] [employer] and reported by [facility]. ID Date Data Source [id number] 11/19/2019 12:00:00 AM EDT [facility] Name Value Range Interpretation Code Description Data Jolynn rce(s) Supporting Document(s ) RESULT [facility] This lab was ordered by [facility] [employer] and reported by [facility] [employer]. ID Date Data Source [id number] 11/19/2019 12:00:00 AM EDT [facility] Name Value Range Interpretation Code Description Data Jolynn rce(s) Supporting Document(s ) SARS [facility] This lab was ordered by MEHRAN and reported by [facility]. Procedure Social History Code Duration Value Status Description Data Source(s ) Smoking 04/14/2020 Former Smoker completed Former Smoker eCW1 (Sa int 12:00:00 AM EDT [facility] PC) Smoking Unknown if ever completed Unknown if ever [facility] Former Smoker completed Former Smoker eCW1 ([facility]) Smoking Unknown if ever completed Unknown if ever eCW1 ([facility]) Smoking Unknown if ever completed Unknown if ever eCW1 ([facility]) Vital Signs ID Date Data Source UNK Name Value Range Interpretation Code Description Data Source(s) Diastolic blood mm[Hg] eCW1 (Eli[facility] nt pressure [facility]) Systolic blood 142 mm[Hg] 142 mm[Hg] eCW1 ([facility] t pressure [facility]) Heart rate /min eCW1 ([facility]) Body mass index 35.53 kg/m2 35.53 kg/m2 eCW1 (S aint (BMI) [Ratio] [facility]) Body weight 170 [lb_av] 170 [lb_av] eCW1 ([facility]) Body height 58 [in_i] 58 [in_i] eCW1 ([facility]) Diastolic blood 80 mm[Hg] 80 mm[Hg] eCW1 (Elijah nt pressure [facility]) Systolic blood 120 mm[Hg] 120 mm[Hg] eCW1 (Kandi t pressure [facility]) Heart rate 68 /min 68 /min eCW1 ([facility]) Body mass index 33.44 kg/m2 33.44 kg/m2 eCW1 (S aint (BMI) [Ratio] [facility]) Body weight 160 [lb_av] 160 [lb_av] eCW1 ([facility]) Body height 58 [in_us] 58 [in_us] eCW1 ([facility]) Patient Treatment Plan of Care Planned Activity Planned Date Details Description Data Source (s) Amlodipine 5 MG Oral Tablet eCW1 ([facility] Practic e ) nebivolol 5 MG Oral Tablet e CW1 ([facility]] Medical Practic e ) nebivolol 5 MG Oral Tablet e CW1 ([facility]] Medical Practic e ) Amlodipine 5 MG Oral Tablet eCW1 ([facility] Practic e )
[2020-05-23 10:59] VITALS: BP 115/68; PULSE 63; TEMP 97
--- NOTE | 2020-05-26 09:33 | PATH ---
Surgical Pathology Report Patient Name: PILAR DUNCAN [facility]. Rec. #: [id number] /Age/Gender: 1965 (Age: 54) / F Account: [id number] Location: U-ENDOSCOPY Taken: 05/23/2020 Received: 05/23/2020 Reported: 05/26/2020 Physicians: Svetlana Marcial M.D. Specimen(s) Received A: TRANSVERSE COLON POLYPS B: HEPATIC FLEXURE POLYPS C: RIGHT COLON POLYPS Clinical History Polyps surveillance Postop diagnosis: polyps, diverticulosis Final Diagnosis A. TRANSVERSE COLON, POLYPS, BIOPSY: COLONIC MUCOSA WITH FOCAL SUPERFICIAL HYPERPLASTIC FEATURES. POLYPOID FRAGMENTS OF COLONIC MUCOSA WITH PROMINENT LYMPHOID AGGREGATE(S). B. COLON, HEPATIC FLEXURE, POLYPS, BIOPSY: POLYPOID FRAGMENTS OF COLONIC MUCOSA WITH PROMINENT LYMPHOID AGGREGATE. C. COLON, RIGHT, POLYPS, BIOPSY: POLYPOID COLONIC MUCOSA WITH PROMINENT LYMPHOID AGGREGATE. Electronically Signed Sally Frank M.D. Gross Description A. Received in formalin, labeled "transverse colon polyps" are multiple hermosillo, irregular soft tissue measuring 0.5 x 0.5 x 0.1 cm aggregate. The specimen is submitted in toto in one cassette. B. Received in formalin, labeled "hepatic flexure polyps" are 3 hermosillo soft tissue measuring 0.2 to 0.3 cm. in greatest dimension. The specimen is submitted in toto in one cassette. C. Received in formalin, labeled "right colon polyps" is a hermosillo, irregular soft tissue measuring 1.0 cm. in greatest dimension. The specimen is submitted in toto in one cassette. KWSyl/05/23/2020 car/05/23/2020
== END 2020-05-23 10:50 | disposition home or self-care (01) ==
LOC: JASU-ENDO 05:05
PROVIDERS: ATTEND Internal Medicine Gastroenterology
PROC: 0DBL8ZX Excision of Transverse Colon, Via Natural or Artificial Opening Endoscopic, Diagnostic (ICD-10-PCS; 2020-05-23)
PROC: 0DBK8ZX Excision of Ascending Colon, Via Natural or Artificial Opening Endoscopic, Diagnostic (ICD-10-PCS; principal; 2020-05-23 09:00)
DX: Z12.11 Encounter for screening for malignant neoplasm of colon (principal); Z86.010 Personal history of colon polyps; D12.3 Benign neoplasm of transverse colon; K57.30 Diverticulosis of large intestine without perforation or abscess without bleeding; K64.8 Other hemorrhoids; K58.9 Irritable bowel syndrome, unspecified
CPT/HCPCS: 82962; 88305-TC

== ENCOUNTER 2023-08-04 21:37 | Emergency (ER) | payer BC ==
[2023-08-04 21:47] VITALS: BMI 26.7
[2023-08-04] MEDS ORDERED: AMOX TR/POT CLAV 875MG/125MG TABLETS (FP) PO ONE (21:54)
[2023-08-04 22:02] VITALS: BP 142/81; PULSE 58; RESP 16; TEMP 97.7
[2023-08-04] MEDS ORDERED: AMOX TR/POT CLAV 875MG/125MG TABLETS (FP) ONE (22:10)
== END 2023-08-04 22:24 | disposition home or self-care (01) ==
LOC: FER 21:37
DX: R10.9 Unspecified abdominal pain (principal); R14.0 Abdominal distension (gaseous); K57.92 Diverticulitis of intestine, part unspecified, without perforation or abscess without bleeding
CPT/HCPCS: 93005; 99283-25